=== PATIENT | male | born 1950 | race Caucasian/White ===

== ENCOUNTER 2017-09-08 16:50 | Emergency (ER) | payer MEDICARE ==
[~2017-09-08] VITALS: Ht 172.7 cm; Wt 78.8 kg
[2017-09-08] MEDS ORDERED: ONDANSETRON 2MG/ML, 2ML ONE (17:06)
[2017-09-08] MEDS ORDERED: KETOROLAC 30 MG/1 ML ONE (17:06)
[2017-09-08] MEDS ORDERED: MORPHINE SULFATE 4 MG/ML, 1ML ONE (17:07)
[2017-09-08] MEDS ORDERED: SODIUM CHLORIDE FLUSH 10ML SYR IVF ONE (17:30)
[2017-09-08] MEDS ORDERED: ONDANSETRON 2MG/ML, 2ML IVPush ONE (17:30)
[2017-09-08] MEDS ORDERED: MORPHINE SULFATE 4 MG/ML, 1ML IVPush PRN (17:30)
[2017-09-08] MEDS ORDERED: KETOROLAC 30 MG/1 ML IVPush ONE (17:30)
[2017-09-08] MEDS ORDERED: SODIUM CHLORIDE 0.9% 1,000ML IVBOLUS ONE (17:30)
[2017-09-08 17:34] LABS: BASOPHILS # (AUTO) 0.01 x10^3/uL (0-0.1); BASOPHILS % (AUTO) 0 % (0-1); EOSINOPHILS # (AUTO) 0.06 x10^3/uL (0-0.4); EOSINOPHILS % (AUTO) 1 % (1-7); LYMPHOCYTES # (AUTO) 1.09 x10^3/uL (1-3.4); LYMPHOCYTES % (AUTO) 12 % (22-44); MD NO; MEAN CORPUSCULAR HEMOGLOBIN 28.4 pg (27.5-34.5); MEAN CORPUSCULAR HGB CONC 34.1 g/dL (33.2-36.2); MEAN CORPUSCULAR VOLUME 83.2 fL (81-97); MONOCYTES # (AUTO) 0.43 x10^3/uL (0.2-0.8); MONOCYTES % (AUTO) 5 % (2-9); NEUTROPHILS # (AUTO) 7.59 x10^3/uL (1.8-6.8); NEUTROPHILS % (AUTO) 83 % (42-75); PLATELET COUNT 153 x10^3/uL (130-400); RED BLOOD COUNT 5.86 x10^6/uL (4.38-5.82); RED CELL DISTRIBUTION WIDTH 14.7 % (9.4-14.8)
[2017-09-08 17:50] LABS: ALBUMIN 4.4 g/dL (3.4-5.0); ANION GAP 9 mmol/L (5-15); CALCIUM 8.7 mg/dL (8.5-10.1); CHLORIDE 109 mmol/L (98-107)
[2017-09-08 17:56] LABS: ALANINE AMINOTRANSFERASE 37 U/L (12-78); ALKALINE PHOSPHATASE 62 U/L (45-117); CREATININE 1.23 mg/dL (0.7-1.3); TOTAL PROTEIN 8.1 g/dL (6.4-8.2)
[2017-09-08] MEDS ORDERED: OXYcodone/APAP 5/325MG TABLET PO ONE (18:30)
[2017-09-08] MEDS ORDERED: OXYcodone/APAP 5/325MG TABLET ONE (18:34)
[2017-09-08 19:12] VITALS: BP 193/91
[2017-09-08 19:37] LABS: MICROSCOPIC AUTO
[2017-09-08 19:38] LABS: CULTURE INDICATED? YES
== END 2017-09-08 19:58 | disposition home or self-care (01) ==
LOC: ED 18:47
DX: N13.2 Hydronephrosis with renal and ureteral calculous obstruction (principal)
CPT/HCPCS: 36415; 74018; 74176; 80053; 81001; 85025; 87086; 96374; 96375; 99285; J1885; J2405; J7030

== ENCOUNTER → 2017-09-25 | Outpatient (CLI) | payer MEDICARE ==
[~2017-09-25] MED LIST: IRBE150T25 PO
[2017-09-25 10:15] LABS: MICROSCOPIC NOT IND
== END | disposition home or self-care (01) ==
LOC: STAR 08:58
PROVIDERS: ATTEND Urology
DX: Z01.818 Encounter for other preprocedural examination (principal); N20.1 Calculus of ureter
CPT/HCPCS: 81003; 87086; 93005

== ENCOUNTER → 2017-10-05 | Outpatient (CLI) | payer MEDICARE ==
[2017-10-05 15:58] LABS: ANION GAP 8 mmol/L (5-15); CALCIUM 9.3 mg/dL (8.5-10.1); CHLORIDE 109 mmol/L (98-107); CREATININE 2.08 mg/dL (0.7-1.3)
== END | disposition home or self-care (01) ==
LOC: CFH 12:55
PROVIDERS: ATTEND Pediatrics
DX: R94.4 Abnormal results of kidney function studies (principal); Z88.2 Allergy status to sulfonamides
CPT/HCPCS: 36415; 80048

== ENCOUNTER → 2017-10-06 | Outpatient (CLI) | payer MEDICARE | END | disposition home or self-care (01) | LOC: CFH 13:18 | PROVIDERS: ATTEND Urology | DX: N20.1 Calculus of ureter (principal); Z88.2 Allergy status to sulfonamides | CPT/HCPCS: 74018 ==

== ENCOUNTER 2017-10-07 05:41 | Day surgery (SDC) | payer MEDICARE ==
[~2017-10-07] VITALS: Ht 172.7 cm; Wt 73.0 kg
[2017-10-07] MEDS ORDERED: LACTATED RINGERS 1,000 ML IV SCH (06:08)
[2017-10-07 06:09] VITALS: BP 152/80
[2017-10-07] MEDS ORDERED: LIDOCAINE-MPF 1%, 2ML INFIL ONE (06:30)
[2017-10-07] MEDS ORDERED: MIDAZOLAM 1 MG/ML, 2ML ONE (07:10)
[2017-10-07] MEDS ORDERED: FENTANYL PF 250 MCG/5ML ONE (07:10)
[2017-10-07] MEDS ORDERED: PROPOFOL 10 MG/ML, 20ML ONE (07:29)
[2017-10-07] MEDS ORDERED: ONDANSETRON 2MG/ML, 2ML ONE (07:29)
[2017-10-07] MEDS ORDERED: SUCCINYLCHOLINE 20 MG/ML, 10ML ONE (07:29)
[2017-10-07] MEDS ORDERED: ROCURONIUM 10 MG/ML,10ML ONE (07:29)
[2017-10-07] MEDS ORDERED: DEXAMETHASONE 4 MG/ML, 1ML ONE (07:29)
[2017-10-07] MEDS ORDERED: PROMETHAZINE 25 MG/ML, 1ML IV PRN (08:00)
[2017-10-07] MEDS ORDERED: OXYcodone 5 MG/5 ML ORAL.SOL UDC PO PRN (08:00)
[2017-10-07] MEDS ORDERED: ONDANSETRON 2MG/ML, 2ML IVPush PRN (08:00)
[2017-10-07] MEDS ORDERED: METOCLOPRAMIDE 5 MG/ML, 2ML IV PRN (08:00)
[2017-10-07] MEDS ORDERED: LABETALOL 5MG/ML, 20ML IV PRN (08:00)
[2017-10-07] MEDS ORDERED: HYDROmorphone 1 MG/ML, 1ML IV PRN (08:00)
[2017-10-07] MEDS ORDERED: FENTANYL PF 100 MCG/2ML IV PRN (08:00)
[2017-10-07] MEDS ORDERED: KETOROLAC 30 MG/1 ML IV PRN (08:00)
[2017-10-07] MEDS ORDERED: MEPERIDINE/PF 25MG/0.5ML IVPush PRN (08:00)
[2017-10-07] MEDS ORDERED: hydrALAzine 20 MG/ML, 1ML IV PRN (08:00)
[2017-10-07] MEDS ORDERED: ALBUTEROL SULFATE 2.5 MG/3 ML NPPB PRN (08:00)
[2017-10-07] MEDS ORDERED: FENTANYL PF 100 MCG/2ML ONE (09:11)
== END 2017-10-07 11:05 | disposition home or self-care (01) ==
LOC: OUT 05:41
PROVIDERS: ATTEND Urology
DX: N20.1 Calculus of ureter (principal); Z79.899 Other long term (current) drug therapy; Z88.2 Allergy status to sulfonamides; Z98.890 Other specified postprocedural states; Z72.89 Other problems related to lifestyle; Z88.1 Allergy status to other antibiotic agents; Z88.8 Allergy status to other drugs, medicaments and biological substances
CPT/HCPCS: 50590; J0330; J1100; J2250; J2405; J2704; J3010

== ENCOUNTER → 2017-10-15 | Outpatient (CLI) | payer MEDICARE ==
[2017-10-15 16:30] LABS: ALBUMIN 4.1 g/dL (3.4-5.0); ANION GAP 6 mmol/L (5-15); CALCIUM 9.2 mg/dL (8.5-10.1); CHLORIDE 110 mmol/L (98-107)
[2017-10-15 16:34] LABS: ALANINE AMINOTRANSFERASE 29 U/L (12-78); ALKALINE PHOSPHATASE 77 U/L (45-117); BILIRUBIN,TOTAL 0.6 mg/dL (0.2-1.0); TOTAL PROTEIN 7.9 g/dL (6.4-8.2)
== END | disposition home or self-care (01) ==
LOC: CFH 12:50
PROVIDERS: ATTEND Internal Medicine
DX: R79.89 Other specified abnormal findings of blood chemistry (principal); Z88.2 Allergy status to sulfonamides
CPT/HCPCS: 36415; 80053; 84550

== ENCOUNTER → 2017-11-05 | Outpatient (CLI) | payer MEDICARE | END | disposition home or self-care (01) | LOC: CFH 12:43 | PROVIDERS: ATTEND Urology | DX: N20.0 Calculus of kidney (principal) | CPT/HCPCS: 74018 ==

== ENCOUNTER → 2017-11-27 | Outpatient (CLI) | payer MEDICARE | END | disposition home or self-care (01) | LOC: CFH 09:02 | PROVIDERS: ATTEND Urology | DX: N20.1 Calculus of ureter (principal) | CPT/HCPCS: 74176 ==

== ENCOUNTER 2018-06-12 18:16 | Inpatient (IN) | payer MEDICARE ==
[~2018-06-12] VITALS: Ht 172.7 cm; Wt 76.2 kg
[2018-06-12] MEDS ORDERED: ONDANSETRON 2MG/ML, 2ML IVPush ONE (19:00)
[2018-06-12] MEDS ORDERED: SODIUM CHLORIDE FLUSH 10ML SYR IVF ONE (19:00)
--- NOTE | 2018-06-12 19:05 | NUR ---
REPORT RECEIVED FROM JENNIE ROSENTHAL. ASSUMED CARE OF PT. IV JUST ESTABLISHED. ORDERS IN FOR PAIN MEDS.
[2018-06-12] MEDS ORDERED: ONDANSETRON 2MG/ML, 2ML ONE ×2 (19:07→20:56)
[2018-06-12] MEDS ORDERED: MORPHINE SULFATE 4 MG/ML, 1ML ONE ×2 (19:07→20:56)
--- NOTE | 2018-06-12 19:10 | NUR ---
PT TO CT
[2018-06-12 19:16] LABS: BASOPHILS # (AUTO) 0.04 x10^3/uL (0-0.1); BASOPHILS % (AUTO) 1 % (0-1); EOSINOPHILS # (AUTO) 0.06 x10^3/uL (0-0.4); EOSINOPHILS % (AUTO) 1 % (1-7); LYMPHOCYTES # (AUTO) 0.72 x10^3/uL (1-3.4); LYMPHOCYTES % (AUTO) 9 % (22-44); MD NO; MEAN CORPUSCULAR HEMOGLOBIN 28.8 pg (27.5-34.5); MEAN CORPUSCULAR HGB CONC 34.7 g/dL (33.2-36.2); MEAN CORPUSCULAR VOLUME 82.9 fL (81-97); MONOCYTES # (AUTO) 0.52 x10^3/uL (0.2-0.8); MONOCYTES % (AUTO) 6 % (2-9); NEUTROPHILS # (AUTO) 6.73 x10^3/uL (1.8-6.8); NEUTROPHILS % (AUTO) 84 % (42-75); PLATELET COUNT 146 x10^3/uL (130-400); RED CELL DISTRIBUTION WIDTH 14.2 % (9.4-14.8)
[2018-06-12 19:21] LABS: ALANINE AMINOTRANSFERASE 30 U/L (12-78); ALBUMIN 4.3 g/dL (3.4-5.0); ANION GAP 7 mmol/L (5-15); CALCIUM 8.9 mg/dL (8.5-10.1); CHLORIDE 111 mmol/L (98-107)
[2018-06-12 19:23] LABS: ALKALINE PHOSPHATASE 76 U/L (45-117); BILIRUBIN,TOTAL 0.7 mg/dL (0.2-1.0); TOTAL PROTEIN 7.5 g/dL (6.4-8.2)
[2018-06-12] MEDS: MORPHINE SULFATE 4 MG/ML, 1ML IVPush PRN ×2 (19:23→20:58)
--- NOTE | 2018-06-12 19:28 | NUR ---
PT MEDICATED PER EMAR. 5 RIGHTS ADDRESSED. PT PROVIDED WITH URINE CUP FOR UA
--- NOTE | 2018-06-12 19:33 | NUR ---
PT AMBULATORY TO RESTROOM WITH A STEADY GAIT NOTED.
--- NOTE | 2018-06-12 19:38 | NUR ---
URINE COLLECTED AND SENT TO LAB. PT BACK TO BED WITHOUT DIFFICULTY. REPORTS RELIEF FROM PAIN AFTER MEDICATION ADMINISTRATION. WILL CONTINUE TO MONITOR
[2018-06-12 19:51] LABS: MICROSCOPIC AUTO
[2018-06-12 19:53] LABS: CULTURE INDICATED? NO
--- NOTE | 2018-06-12 20:07 | NUR ---
CHART UP FOR RECHECK
--- NOTE | 2018-06-12 21:02 | NUR ---
PT REPORTS PAIN WAS "TOTALLY GONE" BUT IS NOW RETURNING, 05/26. PT MEDICATED WITH SECOND DOSE OF PAIN MEDS. VITALS STABLE. CALL LIGHT WITHIN REACH. WILL CONTINUE TO MONITOR.
[2018-06-12] MEDS ORDERED: ATOR10TA9 PO (21:05)
--- NOTE | 2018-06-12 21:40 | NUR ---
REPORT TO JENNIE ARANDA
[2018-06-12] MEDS ORDERED: BISACODYL 10 MG SUPP PR PRN (22:00)
[2018-06-12] MEDS ORDERED: ACETAMINOPHEN 325 MG TABLET PO PRN (22:00)
[2018-06-12] MEDS ORDERED: ATORVASTATIN 10 MG TABLET PO SCH (22:00)
[2018-06-12] MEDS ORDERED: morphine SULFATE 10 MG/ML, 1ML IVPush PRN (22:00)
[2018-06-12] MEDS: SODIUM CHLORIDE 0.9% 1,000 ML IV SCH (22:34)
[2018-06-12] MEDS: ONDANSETRON 2MG/ML, 2ML IVPush PRN (23:35)
[2018-06-13 00:49] VITALS: BP 125/70
[2018-06-13 03:19] VITALS: BP 104/52
[2018-06-13] MEDS ORDERED: LORazepam 2 MG/ML, 1ML IVPush ONE (04:00)
[2018-06-13 05:34] LABS: BASOPHILS # (AUTO) 0.01 x10^3/uL (0-0.1); BASOPHILS % (AUTO) 0 % (0-1); EOSINOPHILS # (AUTO) 0.02 x10^3/uL (0-0.4); EOSINOPHILS % (AUTO) 0 % (1-7); LYMPHOCYTES # (AUTO) 0.62 x10^3/uL (1-3.4); LYMPHOCYTES % (AUTO) 8 % (22-44); MD NO; MEAN CORPUSCULAR HEMOGLOBIN 28.2 pg (27.5-34.5); MEAN CORPUSCULAR VOLUME 82.8 fL (81-97); MEAN PLATELET VOLUME 10.5 fL (7.4-10.4); MONOCYTES # (AUTO) 0.67 x10^3/uL (0.2-0.8); MONOCYTES % (AUTO) 9 % (2-9); NEUTROPHILS # (AUTO) 6.41 x10^3/uL (1.8-6.8); NEUTROPHILS % (AUTO) 83 % (42-75); PLATELET COUNT 140 x10^3/uL (130-400); RED BLOOD COUNT 5.03 x10^6/uL (4.38-5.82); RED CELL DISTRIBUTION WIDTH 14.4 % (9.4-14.8)
[2018-06-13 05:39] LABS: ALANINE AMINOTRANSFERASE 23 U/L (12-78); ALBUMIN 3.7 g/dL (3.4-5.0); ANION GAP 7 mmol/L (5-15); CALCIUM 8.3 mg/dL (8.5-10.1); CHLORIDE 112 mmol/L (98-107); CREATININE 1.61 mg/dL (0.7-1.3)
[2018-06-13 05:41] LABS: ALKALINE PHOSPHATASE 68 U/L (45-117); BILIRUBIN,TOTAL 0.7 mg/dL (0.2-1.0); TOTAL PROTEIN 6.7 g/dL (6.4-8.2)
[2018-06-13] MEDS ORDERED: FENTANYL PF 100 MCG/2ML ONE (06:32)
[2018-06-13] MEDS ORDERED: CEFAZOLIN 1,000 MG ONE (07:27)
[2018-06-13] MEDS ORDERED: ONDANSETRON 2MG/ML, 2ML ONE (07:27)
[2018-06-13] MEDS ORDERED: GLYCOPYRROLATE 0.2MG/1ML, 5ML ONE (07:27)
[2018-06-13] MEDS ORDERED: ROCURONIUM 10MG/ML,5ML ONE (07:27)
[2018-06-13] MEDS ORDERED: SUCCINYLCHOLINE 20 MG/ML, 10ML ONE (07:27)
[2018-06-13] MEDS ORDERED: DEXAMETHASONE 4 MG/ML, 1ML ONE (07:27)
[2018-06-13] MEDS ORDERED: PROPOFOL 10 MG/ML, 20ML ONE (07:27)
[2018-06-13] MEDS ORDERED: NEOSTIGMINE 1 MG/ML, 10ML ONE (07:27)
[2018-06-13] MEDS ORDERED: DIPHENHYDRAMINE 50 MG/ML, 1ML IVPush PRN (08:00)
[2018-06-13] MEDS ORDERED: PROCHLORPERAZINE 5 MG/ML, 2ML IV PRN (08:00)
[2018-06-13] MEDS ORDERED: PROMETHAZINE 25 MG/ML, 1ML IV PRN (08:00)
[2018-06-13] MEDS ORDERED: HALOPERIDOL 5 MG/ML IV PRN ×2 (08:00)
[2018-06-13] MEDS ORDERED: MEPERIDINE/PF 25MG/0.5ML IVPush PRN (08:00)
[2018-06-13] MEDS ORDERED: hydrALAzine 20 MG/ML, 1ML IV PRN (08:00)
[2018-06-13] MEDS ORDERED: LABETALOL 5MG/ML, 20ML IV PRN (08:00)
[2018-06-13] MEDS ORDERED: OXYcodone 5 MG/5 ML ORAL.SOL UDC PO PRN (08:00)
[2018-06-13] MEDS ORDERED: METOPROLOL 1 MG/ML, 5ML IV PRN (08:00)
[2018-06-13] MEDS ORDERED: HYDROmorphone 2 MG/ML, 1ML IVPush PRN (08:00)
[2018-06-13] MEDS ORDERED: FENTANYL PF 100 MCG/2ML IV PRN (08:00)
[2018-06-13 09:00] VITALS: BP 161/75
[2018-06-13] MEDS ORDERED: IRBESARTAN 150 MG TABLET PO SCH (09:00)
[2018-06-13] MEDS ORDERED: [UNRECOGNIZED DRUG - REMARK] PO SCH (09:00)
[2018-06-13] MEDS: SODIUM CHLORIDE 0.9% 1,000 ML IV SCH (09:09)
[2018-06-13] MEDS: ONDANSETRON 2MG/ML, 2ML IVPush PRN (09:10)
[2018-06-13] MEDS ORDERED: MORPHINE SULFATE 4 MG/ML, 1ML IV PRN (09:30)
[2018-06-13] MEDS ORDERED: ONDANSETRON 2MG/ML, 2ML IV PRN (09:30)
[2018-06-13] MEDS ORDERED: OXYcodone/APAP 5/325MG TABLET PO PRN (09:30)
== END 2018-06-13 13:10 | disposition home or self-care (01) | DRG 661 ==
LOC: ED 20:40 → EDIP 21:15 → 3NE 21:55
PROVIDERS: ADMIT Internal Medicine; ATTEND Internal Medicine
PROC: 0T768DZ Dilation of Right Ureter with Intraluminal Device, Via Natural or Artificial Opening Endoscopic (ICD-10-PCS; principal; 2018-06-13 06:00)
DX: N13.2 Hydronephrosis with renal and ureteral calculous obstruction (principal); E78.5 Hyperlipidemia, unspecified; I12.9 Hypertensive chronic kidney disease with stage 1 through stage 4 chronic kidney disease, or unspecified chronic kidney disease; N18.2 Chronic kidney disease, stage 2 (mild); Z80.3 Family history of malignant neoplasm of breast; Z80.8 Family history of malignant neoplasm of other organs or systems; Z82.0 Family history of epilepsy and other diseases of the nervous system; Z82.49 Family history of ischemic heart disease and other diseases of the circulatory system
CPT/HCPCS: 36415; 74176; 74420; 80053; 81001; 83690; 85025; 96374; 96375; 96376; C1726; G0378; J0690; J1100; J2405; J2704; J2710; J3010; C1758; C2617; J0330; J2060; J2270; J7030

== ENCOUNTER → 2018-06-17 | Outpatient (CLI) | payer MEDICARE ==
[~2018-06-17] MED LIST changes: +ATOR10TA9 PO
== END | disposition home or self-care (01) ==
LOC: CFH 12:17
PROVIDERS: ATTEND Urology
DX: N20.1 Calculus of ureter (principal)
CPT/HCPCS: 74018